=== PATIENT | female | born 1990 | race Caucasian/White ===

== ENCOUNTER 2017-05-04 18:23 | Emergency (ER) | payer BC ==
[~2017-05-04] VITALS: Ht 165.1 cm; Wt 62.7 kg
[2017-05-04 18:25] VITALS: TEMP 36.4; Ht 165.1 cm; Wt 62.7 kg
[2017-05-04] MEDS ORDERED: CETI10TA84 PO (18:39)
[2017-05-04] MEDS ORDERED: ETONMIS VAGRING (18:39)
[2017-05-04] MEDS ORDERED: HYDROCODONE/ACETAMOPHEN 5/325MG TAB PO STA (18:47)
[2017-05-04] MEDS ORDERED: HYDR-5688 PO (18:58)
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
[2017-05-04 19:14] VITALS: BP 113/79; PULSE 78; O2SAT 98
== END 2017-05-04 19:15 | disposition home or self-care (01) ==
LOC: C.EDB 18:26 → C.EDD 19:15
DX: T20.07XA Burn of unspecified degree of neck, initial encounter (principal); X12.XXXA Contact with other hot fluids, initial encounter; Z83.3 Family history of diabetes mellitus

== ENCOUNTER 2019-04-11 11:10 | Inpatient (IN) ==
[2019-04-11] MEDS ORDERED: OXYTOCIN 30 UNITS/500 ML BAG IV PRN ×2 (11:45→16:47)
[2019-04-11] MEDS ORDERED: LACTATED RINGER'S 1,000 ML IV PRN (11:45)
--- NOTE | 2019-04-11 11:51 | Obstetrical Progress Note ---
Date of Service April 11, 2019 Subjective Admit Note 28 F P0000 at 40.2 weeks admitted in active labor. GBS is negative. FHT Cat 1. Contractions on monitor every 3 minutes. Cervix 5/80/-2/vertex/intact/bulging membranes. Patient will try do deliver naturally. Will admit and start IV. Results & Data Vital Signs (Past 12 Hours) Vital Signs Pulse BP 04/11/19 11:26 59 L 112/76
[2019-04-11 12:07] LABS: Hematocrit (blood only) 37.7 % (37-47); Hemoglobin 13.4 g/dL (12.0-16.0); Mean Corpuscular Volume 84.2 fL (80-100); Mean Platelet Volume 9.8 fL (7.4-10.4); Platelet Count 226 K/uL (130-400); RDW Standard Deviation 39.3 fL (36.4-46.3); Red Blood Count 4.48 M/uL (4.2-5.4); White Blood Count 13.38 K/uL (4.8-10.8)
[2019-04-11 12:18] LABS: Mean Corpuscular Hgb Conc 35.5 g/dL (32-36)
--- NOTE | 2019-04-11 14:35 | Obstetrical Progress Note ---
Date of Service April 11, 2019 Physical Exam Genitourinary: Manual OB Exam: + cervical dilation 7 cm, + cervical effacement 80% and + station -1 OB Exam Monitor Tracing: + external FHT monitor used and + external uterine monitor used Results & Data Vital Signs (Past 12 Hours) Vital Signs Temp Pulse Resp BP 04/11/19 14:28 68 110/63 04/11/19 11:38 36.4 C L 20 04/11/19 11:26 59 L 112/76
[2019-04-11] MEDS ORDERED: ONDANSETRON INJ 2 MG/ML 2 ML VIAL IV PRN (14:54)
--- NOTE | 2019-04-11 15:21 | Obstetrical Progress Note ---
Date of Service April 11, 2019 Physical Exam Genitourinary: Manual OB Exam: + cervical dilation 9 cm, + cervical effacement 100%, + station 0 and + amniotic fluid clear OB Exam Monitor Tracing: + external FHT monitor used, + external uterine monitor used and + category I AROM with clear fluid Results & Data Vital Signs (Past 12 Hours) Vital Signs Temp Pulse Resp BP 04/11/19 14:28 36.5 C 68 20 110/63 04/11/19 11:38 36.4 C L 20 04/11/19 11:26 59 L 112/76
[2019-04-11] MEDS ORDERED: BISACODYL 10 MG SUPP PR PRN (16:47)
[2019-04-11] MEDS ORDERED: BENZOCAINE 20% AER SPR 82.5 GM CAN EXT PRN (16:47)
[2019-04-11] MEDS ORDERED: DIPHTHERIA/TETANUS/PERTUSSIS 0.5 ML SYR/VIAL IM ONE (16:47)
[2019-04-11] MEDS ORDERED: SUPERCREAM 0.870% 15 GM JAR EXT PRN (16:47)
[2019-04-11] MEDS ORDERED: HYDROCORTISONE ACETATE 25 MG SUPP PR PRN (16:47)
[2019-04-11] MEDS ORDERED: ACETAMINOPHEN 325 MG TAB PO PRN (16:47)
[2019-04-11] MEDS ORDERED: MEASLES, MUMPS & RUBELLA VIRUS VIAL SQ ONE (16:47)
--- NOTE | 2019-04-11 16:54 | Delivery Summary ---
Vaginal Delivery Summary Date of Service April 11, 2019 Supervising Physician Co-Signing Physician Notes Delivery Note live female HERNÁN over intact perineum with nucha cord x1 reduced at delivery. Delayed cord clamping with Apgars 8/9 weight pending. Cord blood obtained followed by spontaneous delivery of intact placenta. first degree tear noted and repaired with 1% Lidocaine and 3/0 Vicryl suture. Final sponge, needle and instrument count are correct. EBL 250 ml. Mom and baby stable.
[2019-04-11] MEDS: IBUPROFEN 600 MG TAB PO PRN (18:29)
[2019-04-12] MEDS: IBUPROFEN 600 MG TAB PO PRN ×3 (04:10→19:28)
[2019-04-12 06:47] LABS: Hemoglobin 12.4 g/dL (12.0-16.0); Mean Corpuscular Hgb Conc 35.4 g/dL (32-36); Mean Corpuscular Volume 83.5 fL (80-100); Mean Platelet Volume 9.7 fL (7.4-10.4); Platelet Count 260 K/uL (130-400); RDW Standard Deviation 39.4 fL (36.4-46.3); Red Blood Count 4.19 M/uL (4.2-5.4); White Blood Count 16.15 K/uL (4.8-10.8)
--- NOTE | 2019-04-12 08:11 | Obstetrical Progress Note ---
Date of Service April 12, 2019 Subjective doing well out of bed ambulating well passing gas tolerating diet Physical Exam Constitutional: WD/WN, vitals as above comfortable abdomen soft no edema tent discharge in AM Results & Data Vital Signs (Past 12 Hours) Vital Signs Temp Pulse Pulse Resp BP BP 04/12/19 04:00 37.0 C 67 18 110/76 04/12/19 00:00 36.9 C 66 18 101/66 04/11/19 22:30 36.8 C 71 18 114/72 04/11/19 21:02 81 107/66 04/11/19 21:01 37.0 C 18 Laboratory Results Laboratory Results - last 48 hr 04/11/19 04/12/19 11:55 06:29 WBC 13.38 H 16.15 H RBC 4.48 4.19 L Hgb 13.4 12.4 Hct 37.7 35.0 L MCV 84.2 83.5 MCH 29.9 29.6 MCHC 35.5 35.4 RDW Std Deviation 39.3 39.4 RDW Coeff of Traci 13.0 13.0 Plt Count 226 260 MPV 9.8 9.7
[2019-04-12] MEDS ORDERED: NON-FORMULARY MEDICATION (Prenatal Vit-Iron Fum-Folic Ac [Prenatal Vitamin] 1 TAB) PO SCH (09:00)
[2019-04-12] MEDS: PRENATAL VITAMIN 1 TAB PO SCH (09:01)
[2019-04-12] MEDS: DOCUSATE SODIUM 100 MG CAP PO SCH ×2 (09:01→20:36)
[2019-04-12] MEDS: FERROUS SULFATE 325 MG TAB PO SCH (09:01)
[2019-04-12] MEDS: FLUTICASONE PROPIONATE NA SPR 16 GM BTL SCH (09:03)
[2019-04-12] MEDS ORDERED: BISACODYL 5 MG TABEC PO SCH (20:00)
[2019-04-13] MEDS: IBUPROFEN 600 MG TAB PO PRN ×2 (05:12→13:53)
[2019-04-13 06:27] LABS: Hematocrit (blood only) 34.2 % (37-47); Hemoglobin 11.4 g/dL (12.0-16.0)
[2019-04-13] MEDS: FLUTICASONE PROPIONATE NA SPR 16 GM BTL SCH (08:08)
[2019-04-13] MEDS: PRENATAL VITAMIN 1 TAB PO SCH (08:09)
[2019-04-13] MEDS: FERROUS SULFATE 325 MG TAB PO SCH (08:09)
[2019-04-13] MEDS: DOCUSATE SODIUM 100 MG CAP PO SCH (08:09)
--- NOTE | 2019-04-13 10:44 | Obstetrical Progress Note ---
Date of Service April 13, 2019 Subjective Patient is seen and examined. She feels well, no complaints. Likes to be discharged. Ambulating without dizziness Voiding without difficulty Tolerating regular diet with out N&V Bleeding is minimal No fever/ chills/ CP/ SOB/ N&V/ Leg pain Breast feeding without problems Vital Signs Temp Pulse Resp BP Pulse Ox 04/13/19 07:21 36.7 C 94 H 18 105/70 97 04/12/19 22:45 36.5 C 77 18 103/65 04/12/19 19:15 36.5 C 72 18 115/75 04/12/19 15:55 37.1 C 82 16 119/70 04/12/19 12:30 36.8 C 85 16 104/68 04/13/19 Range/Units 06:12 Hgb 11.4 L (12.0-16.0) g/dL Hct 34.2 L (37-47) % Lab Results 04/11/19 04/12/19 04/13/19 Range/Units 11:55 06:29 06:12 WBC 13.38 H 16.15 H (4.8-10.8) K/uL RBC 4.48 4.19 L (4.2-5.4) M/uL Hgb 13.4 12.4 11.4 L (12.0-16.0) g/dL Hct 37.7 35.0 L 34.2 L (37-47) % MCV 84.2 83.5 (80-100) fL MCH 29.9 29.6 (25-34) pg MCHC 35.5 35.4 (32-36) g/dL RDW Std Deviation 39.3 39.4 (36.4-46.3) fL RDW Coeff of Traci 13.0 13.0 (11.5-14.5) % Plt Count 226 260 (130-400) K/uL MPV 9.8 9.7 (7.4-10.4) fL PE: General: Alert, orientedx3, NAD Abd: soft, NT, fundus firm, below Umbilicus Perineum intact, Lochia rubra minimal Ext; NT, no edema AP: 28 yo s/p , ppd# 2 VSS Afebrile doing well Continue routine care All questions were answered Discussed visits at 3 and 6 weeks and when to call D/C home after CBC/ WBCC Results & Data Vital Signs (Past 12 Hours) Vital Signs Temp Pulse Resp BP Pulse Ox 04/13/19 07:21 36.7 C 94 H 18 105/70 97 04/12/19 22:45 36.5 C 77 18 103/65
[2019-04-13 11:05] LABS: Basophils # (auto) 0.03 K/uL (0-0.2); Basophils % (auto) 0.2 %; Eosinophils # (auto) 0.25 K/uL (0-0.5); Eosinophils % (auto) 1.8 %; Hematocrit (blood only) 33.7 % (37-47); Hemoglobin 11.5 g/dL (12.0-16.0); Immature Granulocytes # (auto) 0.21 K/uL (0.00-0.02); Immature Granulocytes % (auto) 1.5 %; Lymphocytes # (auto) 2.36 K/uL (1.2-3.4); Lymphocytes % (auto) 16.7 %; Mean Corpuscular Hgb Conc 34.1 g/dL (32-36); Mean Corpuscular Volume 86.6 fL (80-100); Mean Platelet Volume 9.9 fL (7.4-10.4); Monocytes % (auto) 7.8 %; Neutrophils # (auto) 10.22 K/uL (1.4-6.5); Platelet Count 248 K/uL (130-400); RDW Coefficient of Variation 13.5 % (11.5-14.5); RDW Standard Deviation 42.7 fL (36.4-46.3); Red Blood Count 3.89 M/uL (4.2-5.4); White Blood Count 14.17 K/uL (4.8-10.8)
== END 2019-04-13 15:00 | disposition home or self-care (01) | DRG 807 ==
LOC: OPB 11:10 → 4S1 11:19 → 4S2 21:10

== ENCOUNTER 2023-04-23 13:36 | Inpatient (IN) ==
[2023-04-23] MEDS ORDERED: LIDOCAINE 1% LOCAL 20 ML VIAL INFIL PRN (13:57)
[2023-04-23] MEDS ORDERED: OXYTOCIN 30 UNITS/500 ML BAG IV PRN ×2 (13:57→15:58)
[2023-04-23] MEDS ORDERED: LACTATED RINGER'S 1,000 ML IV PRN (13:57)
--- NOTE | 2023-04-23 14:00 | History & Physical Report ---
Date of Service April 23, 2023 Assessment & Plan (1) 40 weeks gestation of : Plan: Patient was checked by nursing staff and found to be 5 to 6 cm dilated Admit, routine labs, epidural if patient requests Anticipate spontaneous vaginal delivery (2) Normal in multigravida in third trimester: (3) Anxiety during in third trimester, antepartum: History of Present Illness Chief Complaint: CTX Primary Care Provider: Josué Schroeder MD Patient is a pleasant 32-year-old -0-0-2 at 40 weeks and 1 day dated by last menstrual period consistent with a 7-week ultrasound who presents to labor and delivery for ongoing and worsening contraction pains. She denies leaking of fluid or vaginal bleeding. Notes good movement. Denies headache, blurry vision, right upper quadrant epigastric pain. Otherwise feeling well. She would like to go unmedicated with this delivery. Her last 2 vaginal deliveries were uncomplicated Allergies Allergy/AdvReac Type Severity Reaction Status Date / Time cat dander Allergy Unknown Unknown Verified 10/30/20 00:52 Home Medications Medication Instructions Recorded Confirmed Type fluticasone propionate 50 1 spray intranasal DAILY 04/11/19 10/30/20 History mcg/actuation nasal spray,suspension (Flonase Allergy Relief) vitamins-iron fumarate 27 1 tab PO DAILY 04/11/19 10/30/20 History mg iron-folic acid 0.8 mg tablet ( Vitamin) ibuprofen 600 mg tablet 600 mg PO Q4H #30 tabs 10/31/20 Rx Patient History Medical History Ovarian torsion Surgical History H/O unilateral oophorectomy right H/O wisdom tooth extraction History of appendectomy Social History Smoking Status: Never smoker Hx Alcohol Use: No Hx Substance Use: No Preferred Language: Romanian Communication Ability: Effective Network Professional Required: No Beliefs That Will Affect Care: None marital status: Current Living Situation: Spouse and Family Feels Safe at Home: Yes Assistive Devices: Glasses OB History -0-0-2 x2 TAPPER HAND History Denies a history of sexual transmitted infections, see record Physical Exam Constitutional: WD/WN, vitals as above Respiratory: normal respiratory effort, lungs clear to auscultation Cardiovascular: RRR, no murmur, no edema Gastrointestinal (Abdomen): normal bowel sounds, soft, nontender, no hepatosplenomegaly Gravid, Desean cephalic, estimated weight 3300 g Results & Data Vital Signs (Past 12 Hours) Vital Signs Temp Pulse Resp BP 04/23/23 13:45 36.6 C 93 H 22 115/77 Monitoring External Monitor heart tracing: Baseline 155, moderate variability, no accelerations, occasional variable Tocodynamometer Contractions every 2 to 3 minutes
[2023-04-23 14:45] LABS: Hematocrit (blood only) 42.5 % (37.0-47.0); Hemoglobin 14.7 g/dl (12.0-16.0); Mean Corpuscular Hgb Conc 34.6 g/dL (32.0-36.0); Mean Corpuscular Volume 83.8 fL (80.0-100.0); Mean Platelet Volume 10.2 fL (9.4-12.4); Platelet Count 275 K/uL (130-400); RDW Coefficient of Variation 12.6 % (11.5-14.5); RDW Standard Deviation 37.7 fL (36.4-46.3); Red Blood Count 5.07 M/uL (4.20-5.40); White Blood Count 11.02 K/ul (4.8-10.8)
[2023-04-23] MEDS ORDERED: DIPHTHERIA/TETANUS/PERTUSSIS Vaccine (Tdap, Age 7+yrs) 0.5mL SYR/VL IM ONE (15:58)
[2023-04-23] MEDS ORDERED: HYDROCORTISONE ACETATE 25 MG SUPP PR PRN (15:58)
[2023-04-23] MEDS ORDERED: oxyCODONE/ACETAMINOPHEN 5mg/325mg TAB PO PRN (15:58)
[2023-04-23] MEDS ORDERED: ACETAMINOPHEN 325 MG TAB PO PRN (15:58)
[2023-04-23] MEDS ORDERED: bisacodyL 10 MG SUPP PR PRN (15:58)
[2023-04-23] MEDS ORDERED: BENZOCAINE 20% SPRY 85 APPLN/85 GM CAN EXT PRN (15:58)
--- NOTE | 2023-04-23 16:02 | Delivery Summary ---
Vaginal Delivery Summary Date of Service April 23, 2023 Vaginal Delivery Summary Delivery Summary: Patient was placed on her left lateral side (per patient request). She was prepped and draped in the usual sterile fashion. Upon maternal pushing the head was delivered atraumatically followed by the right compound hand, anterior shoulders, posterior shoulders then the remainder of the infants body. The was immediately placed on mother's abdomen, dried and stimulated. D elayed cord clamping for 60 seconds was performed. The infants mouth and nose were bulb suctioned by nursing staff. A female infant was delivered at 1549, weight pending with APGARS of 8 at 1 minute and 9 at 5 minutes. The infant was handed off to the awaiting nursing staff. Cord blood gases were not obtained. The placenta delivered intact with three vessel cord. Placenta was sent to pathology. Thirty units of Pitocin were added to the IV fluid and allowed to run freely. Uterine massage was performed until uterus was deemed firm. Upon inspection of the perineum, cervix were intact. Small 1 cm first degree laceration was noted, but not bleeding.As hemostatic, recommended no need to repair at this time. Patient was agreeable. Upon re- inspection the patient was hemostatic. Uterus again massaged and found to be firm. Needle and sponge counts were correct. Patient was stable and allowed to recover in L&D room. was stable and remained in room with mother in the labor and delivery unit.
[2023-04-23] MEDS: IBUPROFEN 600 MG TAB PO PRN ×2 (17:22→22:08)
[2023-04-23] MEDS: DOCUSATE SODIUM 100 MG CAP PO SCH (21:03)
[2023-04-24 07:54] LABS: Hematocrit (blood only) 37.2 % (37.0-47.0); Mean Corpuscular Hemoglobin 29.1 pg (25.0-34.0); Mean Corpuscular Hgb Conc 34.9 g/dL (32.0-36.0); Mean Corpuscular Volume 83.2 fL (80.0-100.0); Platelet Count 260 K/uL (130-400); RDW Coefficient of Variation 12.6 % (11.5-14.5); RDW Standard Deviation 38.1 fL (36.4-46.3); Red Blood Count 4.47 M/uL (4.20-5.40); White Blood Count 12.15 K/ul (4.8-10.8)
[2023-04-24] MEDS ORDERED: PRENATAL VITAMIN 1 TAB PO SCH (08:00)
[2023-04-24] MEDS: IBUPROFEN 600 MG TAB PO PRN ×2 (08:50→16:43)
[2023-04-24] MEDS: DOCUSATE SODIUM 100 MG CAP PO SCH (08:50)
--- NOTE | 2023-04-24 10:51 | Obstetrical Progress Note ---
Date of Service April 24, 2023 Assessment & Plan (1) 40 weeks gestation of : discharge later today Subjective Ambulation: ambulating normally Voiding: no voiding problems Passing Gas:: Yes Diet Tolerance:: regular diet Lochia:: Small Feeding Type:: breast feeding Current Pain Level(1-10): 0 doing well Physical Exam Constitutional WD/WN, vitals as above Musculoskeletal Extremities: extremities normal to inspection Skin no rashes, warm and dry Neurologic patellar DTR's 2+ bilat, sensation intact Psychiatric A+Ox3, euthymic affect Results & Data Vital Signs (Past 12 Hours) Vital Signs Temp Pulse Resp BP Pulse Ox O2 Del Method 04/24/23 04:14 36.9 C 71 18 105/67 96 Room Air 04/24/23 00:01 36.8 C 70 18 103/62 96 Room Air Laboratory Results Laboratory Results - last 72 hr 04/23/23 04/24/23 14:18 07:25 WBC 11.02 H 12.15 H RBC 5.07 4.47 Hgb 14.7 13.0 Hct 42.5 37.2 MCV 83.8 83.2 MCH 29.0 29.1 MCHC 34.6 34.9 RDW Std Deviation 37.7 38.1 RDW Coeff of Traci 12.6 12.6 Plt Count 275 260 MPV 10.2 10.0
[2023-04-24] MEDS ORDERED: bisacodyL 5 MG TABEC PO SCH (20:00)
== END 2023-04-24 18:05 | disposition home or self-care (01) | DRG 807 ==
LOC: OPB 13:36 → 4S1 13:37 → 4E2 18:32

== ENCOUNTER 2025-04-23 05:13 | Inpatient (IN) ==
[2025-04-23] MEDS ORDERED: LACTATED RINGER'S 1,000 ML IV PRN (05:52)
[2025-04-23] MEDS ORDERED: LIDOCAINE 1% LOCAL 20 ML VIAL INFIL PRN (05:52)
--- NOTE | 2025-04-23 06:10 | Obstetrical Progress Note ---
Date of Service April 23, 2025 Assessment & Plan (1) : Plan: Patient is a 34-year-old G4, P3 at 40+ gestation. Here for labor check. heart rate category 1. Contractions 2 to 4 minutes mild to moderate intensity. Vaginal exam by nurse shows 3 to 4 cm 50% -2 station. Bedside ultrasound shows cephalic presentation. Plan Admit. IV labs Anticipate vaginal delivery Patient wishes to ambulate for now. Admission and Anticipated Discharge Date Admission Date: April 23, 2025 Results & Data Vital Signs (Past 12 Hours) Vital Signs Temp Pulse Resp BP 04/23/25 05:29 36.9 C 121 H 18 112/73 04/23/25 05:27 36.9 C 18
[2025-04-23 06:30] LABS: Hematocrit (blood only) 36.4 % (37.0-47.0); Hemoglobin 12.5 g/dl (12.0-16.0); Mean Corpuscular Hemoglobin 28.1 pg (25.0-34.0); Mean Corpuscular Volume 81.8 fL (80.0-100.0); Platelet Count 230 K/uL (130-400); RDW Standard Deviation 38.0 fL (36.4-46.3); Red Blood Count 4.45 M/uL (4.20-5.40); White Blood Count 8.10 K/ul (4.8-10.8)
[2025-04-23] MEDS ORDERED: PENICILLIN GK 6 MU in DEXTROSE 5% 250 ML IV STA (07:05)
--- NOTE | 2025-04-23 07:10 | Obstetrical Progress Note ---
Date of Service April 23, 2025 Assessment & Plan (1) : Plan: Patient is 34-year-old G2, P1 at time. Patient is scheduled for repeat section. On arrival patient appears to be in labor heart rate is category 1 serene every 2 to 3 minutes with moderate to severe intensity vaginal exam shows she is 45 cm 50% and -1 station. Discussed and reviewed with patient exam with her and spouse offered her trial of labor after section as well as proceeding with section. After lengthy discussion and agreement the plan is as follows. Patient will receive epidural and try labor after . Admission and Anticipated Discharge Date Admission Date: April 23, 2025 Results & Data Vital Signs (Past 12 Hours) Vital Signs Temp Pulse Resp BP 04/23/25 07:04 66 116/66 04/23/25 05:29 36.9 C 121 H 18 112/73 04/23/25 05:27 36.9 C 18
[2025-04-23] MEDS: OXYTOCIN 30 UNITS/NSS 30 UNITS/500 ML BAG IV PRN (07:27)
[2025-04-23] MEDS ORDERED: OXYTOCIN 30 UNITS/NSS 30 UNITS/500 ML BAG IV PRN (07:43)
[2025-04-23] MEDS ORDERED: HYDROCORTISONE ACETATE 25 MG SUPP PR PRN (07:43)
[2025-04-23] MEDS ORDERED: BENZOCAINE 20% SPRY 85 APPLN/85 GM CAN EXT PRN (07:43)
[2025-04-23] MEDS ORDERED: ACETAMINOPHEN 325 MG TAB PO PRN (07:43)
--- NOTE | 2025-04-23 07:43 | Delivery Summary ---
Vaginal Delivery Summary Date of Service April 23, 2025 Vaginal Delivery Summary DELIVERY NOTE Patient delivered a live male in left occiput anterior presentation there was no nuchal cord which was easily reduced. was delivered and placed on mother's abdomen. Delayed cord clamping was performed. Cord blood is obtained Cord gasses are not obtained Meconium is absent Placenta is spontaneously delivered. Placenta appears grossly normal and has 3 vessel cord Inspection of the perineum showed a second-degree midline laceration. Laceration is repaired in layers with 2-0 Vicryl in layers Rectal exam post repair showed good sphincter tone no sutures palpated in the rectum. Quantitative blood loss is 150 cc per Infants weight and scores are in the pediatric record Mother and baby are stable in in the recovery
[2025-04-23] MEDS: DIPHTHER/TETAN/PERTUS Vaccine (Tdap, Adol/Adult) 0.5mL IM ONE (07:50)
[2025-04-23] MEDS: DOCUSATE SODIUM 100 MG CAP PO SCH (07:50)
[2025-04-23] MEDS: PRENATAL VITAMIN 1 TAB PO SCH (07:50)
[2025-04-23] MEDS: IBUPROFEN 600 MG TAB PO PRN (09:28)
[2025-04-23] MEDS ORDERED: PENICILLIN GK 3 MU in DEXTROSE 5% 100 ML IV PRN (10:05)
[2025-04-23 20:05] VITALS: TEMP 98.1
[2025-04-24 05:11] VITALS: RESP 16
[2025-04-24 06:55] LABS: Hematocrit (blood only) 36.3 % (37.0-47.0); Hemoglobin 11.9 g/dl (12.0-16.0); Mean Corpuscular Hemoglobin 27.5 pg (25.0-34.0); Mean Corpuscular Volume 84.0 fL (80.0-100.0); Platelet Count 230 K/uL (130-400); RDW Standard Deviation 39.9 fL (36.4-46.3); Red Blood Count 4.32 M/uL (4.20-5.40); White Blood Count 10.42 K/ul (4.8-10.8)
[2025-04-24 07:41] VITALS: BP 101/66; PULSE 66; O2SAT 98
--- NOTE | 2025-04-24 09:51 | Obstetrical Progress Note ---
Date of Service April 24, 2025 Assessment & Plan Admission and Anticipated Discharge Date Admission Date: April 23, 2025 Subjective abdomen soft and non tender no calf tenderness ambulating well vaginal bleeding scant hgb 11.9 Results & Data Vital Signs (Past 12 Hours) Vital Signs Temp Pulse Pulse Resp BP Pulse Ox O2 Del Method 04/24/25 07:10 36.7 C 66 16 101/66 98 Room Air 04/24/25 04:15 36.7 C 65 16 100/64 95 Room Air 04/24/25 00:30 36.7 C 70 17 100/63 99 Room Air
== END 2025-04-24 14:30 | disposition home or self-care (01) | DRG 807 ==
LOC: OPB 05:13 → 4S1 05:18 → 4E2 15:10
DX: O48.0 Post-term pregnancy; O70.1 Second degree perineal laceration during delivery; O34.219 Maternal care for unspecified type scar from previous cesarean delivery; Z3A.41 41 weeks gestation of pregnancy; Z37.0 Single live birth